=== PATIENT | female | born 1960 | race Caucasian/White ===

== ENCOUNTER 2018-04-10 11:08 | Emergency (ER) | payer OTHER ==
[~2018-04-10] VITALS: Ht 167.6 cm; Wt 57.2 kg
--- NOTE | 2018-04-10 11:10 | NUR ---
JF FROM HOME DT DIZZINESS, NAUSEA AND VOMITTIN SINCE YESTERDAY. PATIENT NOT IN DISTRESS. SKIN IS WARM TO TOUCH AND NON DIAPHORETIC. PATIENT IS AFEBRILE. VSS. PATIENT CONNECTED TO TELE MONITOR. MD AT BEDSIDE FOR EVAL.
[2018-04-10] MEDS ORDERED: METOCLOPRAMIDE HCL 10 MG/2 ML VIAL ONE (11:26)
[2018-04-10] MEDS: IV NS 0.9% 1,000 ML BAG IV ONE (11:28)
[2018-04-10] MEDS: METOCLOPRAMIDE HCL 10 MG/2 ML VIAL IV ONE (11:29)
[2018-04-10 11:37] LABS: CALCIUM, SERUM 8.5 mg/dL (8.5-10.1); CREATININE 0.8 mg/dL (0.6-1.3); POTASSIUM 4.6 mmol/L (3.5-5.1)
[2018-04-10 11:42] LABS: ALBUMIN 4.1 g/dL (3.4-5.0); BILIRUBIN,DIRECT 0.1 mg/dL (0.0-0.2); BILIRUBIN,TOTAL 0.3 mg/dL (0.2-1.0); TOTAL PROTEIN, SERUM 7.1 g/dL (6.4-8.2)
[2018-04-10 11:44] LABS: BASOPHILS % (AUTO) 0.3 % (0.0-2.0); EOSINOPHILS % (AUTO) 0.2 % (0.0-6.0); HEMATOCRIT 36 % (33-45); HEMOGLOBIN 12.4 g/dL (11.5-14.8); LYMPHOCYTES % (AUTO) 9.6 % (20.0-44.0); MEAN CORPUSCULAR HGB CONC 35 g/dl (31.0-36.0); MEAN CORPUSCULAR VOLUME 90 fL (82-100); MONOCYTES # (AUTO) 0.6 /CMM (0.1-1.30); MONOCYTES % (AUTO) 5.7 % (2.0-12.0); NEUTROPHILS # (AUTO) 8.6 /CMM (1.8-8.9); NEUTROPHILS % (AUTO) 84.2 % (43.0-81.0); PLATELET COUNT (AUTO) 284 /CMM (150-450); RDW COEFFICIENT OF VARIATION 13.6 (11.5-15.0); RED BLOOD CELL COUNT(AUTO) 3.96 MIL/uL (4.0-5.2); WHITE BLOOD COUNT (AUTO) 10.3 K/uL (4.3-11.0)
[2018-04-10] MEDS ORDERED: HYDROMORPHONE 1 MG/1 ML DISP.SYRIN ONE (11:57)
[2018-04-10] MEDS: HYDROMORPHONE 1 MG/1 ML DISP.SYRIN IV ONE (11:58)
[2018-04-10 13:27] VITALS: BP 132/70
--- NOTE | 2018-04-10 13:27 | NUR ---
Patient discharged to home in stable condition. Written and verbal after care instructions given. Patient verbalizes understanding of instruction.IV removed. Catheter intact and site benign. Pressure and 4x4 applied to site. No bleeding noted.
== END 2018-04-10 13:28 | disposition home or self-care (01) ==
LOC: ER 11:10
DX: R11.2 Nausea with vomiting, unspecified (principal); R19.7 Diarrhea, unspecified; R51 Headache; I10 Essential (primary) hypertension; F17.200 Nicotine dependence, unspecified, uncomplicated; F41.9 Anxiety disorder, unspecified; Z88.0 Allergy status to penicillin
CPT/HCPCS: 36415; 80048; 80076; 83690; 85025; 96361; 96374; 96375; 99284; A4606; J1170; J2765; J7030; Z7610

== ENCOUNTER 2018-11-03 17:04 | Inpatient (IN) | payer MEDICAID, OTHER ==
[~2018-11-03] VITALS: Ht 167.6 cm; Wt 65.8 kg
--- NOTE | 2018-11-03 17:18 | NUR ---
BIBRA FOR ABD PAIN; PT AAOX4, PT ON MONITOR, VSS, NAD NOTED, PENDING MD GRAMAJO
[2018-11-03] MEDS ORDERED: FAMOTIDINE/PF INJ 20 MG/2 ML VIAL IV ONE ×2 (17:24→17:30)
[2018-11-03] MEDS ORDERED: SUCRALFATE 1 G/10 ML UDC ONE (17:24)
[2018-11-03 17:26] LABS: BASOPHILS # (AUTO) 0.1 /CMM (0.0-0.2); BASOPHILS % (AUTO) 0.5 % (0.0-2.0); EOSINOPHILS % (AUTO) 0.1 % (0.0-6.0); HEMATOCRIT 40 % (33-45); HEMOGLOBIN 12.9 g/dL (11.5-14.8); LYMPHOCYTES # (AUTO) 2.1 /CMM (0.8-4.8); LYMPHOCYTES % (AUTO) 15.9 % (20.0-44.0); MEAN CORPUSCULAR HGB CONC 33 g/dl (31.0-36.0); MEAN CORPUSCULAR VOLUME 85 fL (82-100); MONOCYTES # (AUTO) 0.8 /CMM (0.1-1.30); MONOCYTES % (AUTO) 5.9 % (2.0-12.0); NEUTROPHILS # (AUTO) 10.5 /CMM (1.8-8.9); NEUTROPHILS % (AUTO) 77.6 % (43.0-81.0); PLATELET COUNT (AUTO) 360 /CMM (150-450); RED BLOOD CELL COUNT(AUTO) 4.67 MIL/uL (4.0-5.2); WHITE BLOOD COUNT (AUTO) 13.5 K/uL (4.3-11.0)
[2018-11-03] MEDS ORDERED: MORPHINE SULFATE INJ 4 MG/ML DISP.SYRIN ONE ×2 (17:29→20:27)
[2018-11-03] MEDS ORDERED: IV NS 0.9% 1,000 ML BAG IV ONE ×2 (17:30→20:30)
[2018-11-03] MEDS ORDERED: SUCRALFATE 1 G/10 ML UDC PO ONE (17:30)
[2018-11-03 17:40] LABS: CALCIUM, SERUM 9.3 mg/dL (8.5-10.1); CARBON DIOXIDE 27 mmol/L (21-32); CHLORIDE 98 mmol/L (98-107); GLUCOSE 158 mg/dL (74-106); SODIUM SERUM 135 mmol/L (136-145); UREA NITROGEN, BLOOD 9 mg/dL (7-18)
[2018-11-03 17:44] LABS: ALANINE AMINOTRANSFERASE 29 U/L (12-78); ALBUMIN 4.3 g/dL (3.4-5.0); ALKALINE PHOSPHATASE 102 U/L (46-116); ASPARTATE AMINOTRANSFERASE 30 U/L (15-37); BILIRUBIN,DIRECT 0.1 mg/dL (0.0-0.2); BILIRUBIN,TOTAL 0.3 mg/dL (0.2-1.0); LIPASE 166 U/L (73-393); TOTAL PROTEIN, SERUM 7.8 g/dL (6.4-8.2)
[2018-11-03] MEDS ORDERED: MORPHINE SULFATE INJ 4 MG/ML DISP.SYRIN IV STA (17:45)
--- NOTE | 2018-11-03 17:45 | NUR ---
VERBAL ORDER FROM DR. HUMMEL. MORPHINE 4MG IVP
[2018-11-03 18:15] LABS: APPEARANCE,URINE Slightly Cloudy (CLEAR); BILIRUBIN,URINE SMALL (NEGATIVE); BLOOD, URINE Trace-intact Ery/uL (NEGATIVE); COLOR,URINE Dark (YELLOW); KETONES,URINE Negative (NEGATIVE); LEUKOCYTE ESTERASE ,URINE Negative (NEGATIVE); NITRITE, URINE Negative (NEGATIVE); PH,URINE 5.5 (5.0-8.0); PROTEIN,URINE 30 mg/dl (NEGATIVE); UGLUCOSE Negative (NEGATIVE); UROBILINOGEN,URINE 0.2 EU/dL (0.2)
[2018-11-03] MEDS ORDERED: CT SWABBABLE VALVE TRANS SET 1 EA INFUS.SET MC ONE (18:16)
[2018-11-03] MEDS ORDERED: IV NS 0.9% 250 ML IV ONE (18:16)
[2018-11-03] MEDS ORDERED: IOHEXOL-300 100 ML VIAL IV ONE (18:16)
[2018-11-03 18:28] LABS: BACTERIA,URINE Moderate /HPF (None Seen); SQUAMOUS EPITHELIAL CELL,UR Many /HPF (None Seen)
[2018-11-03 18:29] LABS: RBC,URINE 0-2 /HPF (0-2)
[2018-11-03] MEDS ORDERED: GABA-534 PO (18:38)
[2018-11-03] MEDS ORDERED: ALPR2TAB2 PO (18:38)
[2018-11-03] MEDS ORDERED: ERGO500014 PO (18:38)
[2018-11-03] MEDS ORDERED: ATOR20TA PO (18:38)
[2018-11-03] MEDS ORDERED: HYDR-4354 PO (18:38)
[2018-11-03] MEDS ORDERED: PRIM250T8 GT (18:38)
[2018-11-03] MEDS ORDERED: LAMO200T PO (18:38)
[2018-11-03] MEDS ORDERED: ZOLP10TA6 PO (18:38)
[2018-11-03] MEDS ORDERED: ASPI-605 PO (18:38)
[2018-11-03] MEDS ORDERED: POTA-10 PO (18:38)
--- NOTE | 2018-11-03 20:22 | NUR ---
CALLED NURSING SUP. FOR MS BED
[2018-11-03] MEDS ORDERED: ONDANSETRON HCL/PF 4 MG/2 ML VIAL ONE (20:27)
--- NOTE | 2018-11-03 20:29 | NUR ---
MS 206-2
[2018-11-03] MEDS ORDERED: MORPHINE SULFATE INJ 2 MG/ML DISP.SYRIN IV ONE (20:30)
[2018-11-03] MEDS ORDERED: ONDANSETRON HCL/PF - ER 4 MG/2 ML VIAL IV ONE (20:30)
--- NOTE | 2018-11-03 20:51 | NUR ---
REPORT GIVEN TO IVETTE DELATORRE.
[2018-11-03] MEDS ORDERED: ZOLPIDEM TARTRATE 5 MG TABLET PO PRN (21:00)
[2018-11-03] MEDS ORDERED: Z GUARD REMEDY 2 OZ OINT TP PRN (21:00)
[2018-11-03] MEDS ORDERED: HYDROCODONE/APAP 5/325MG 1 EACH TABLET PO PRN (21:00)
[2018-11-03] MEDS ORDERED: MAG HYDROX/AL HYDROX/SIMETH 30 ML UDC PO PRN (21:00)
[2018-11-03] MEDS ORDERED: ACETAMINOPHEN 325 MG TABLET PO PRN (21:00)
[2018-11-03] MEDS ORDERED: MAGNESIUM HYDROXIDE 30 ML UDC PO PRN (21:00)
--- NOTE | 2018-11-03 21:00 | NUR ---
MS RN OPENING NOTES: RECEIVED PT ON ROOM AIR AND IS TOLERATING WELL. NO SOB NOTED. PT STILL COMPLAINING OF PAIN EVEN WITH MORPHINE 4MG IV GIVEN TO HER IN ER. PT HAS IV ON R WRIST AND IS BEING BOLUSED WITH A LITER OF NS BAG. INFORMED PT THAT SHE IS TO BE NPO. BED KEPT IN LOW, LOCKED POSITION, AND SIDE RAILS X 2UP. WILL CONTINUE TO MONITOR PT.
--- NOTE | 2018-11-03 21:35 | NUR ---
MS RN NOTES: NOTIFIED DR. STANLEY THAT PT IS STILL IN 8/10 PAIN EVEN WITH MORPHINE 4 GIVEN IN ER. GOT ORDER FOR DILAUDID 1MG IV Q4 HR PRN PAIN. ALSO GOT ORDER FOR SMALL BOWEL FOLLOW THROUGH WITH PO CONTRAST 50/50 BARIUM AND GASTROGRAFFIN.
[2018-11-03 21:40] VITALS: BP 131/77
--- NOTE | 2018-11-03 22:15 | NUR ---
MS RN NOTES: SMALL BOWEL FOLLOW THROUGH X RAY WITH CONTRAST CONSENT PLACED IN CHART.
[2018-11-03] MEDS: HYDROMORPHONE 1 MG/1 ML DISP.SYRIN IV PRN (22:45)
--- NOTE | 2018-11-03 22:50 | NUR ---
MS RN NOTES: PT COMPLAINING OF 10/10 PAIN IN HER MEDIAL ABDOMEN. PT CRYING, MOANING, AND FACIAL GRIMACING. PT WAS ADMINISTERED DILAUDID 1MG IV. NEW IV STARTED ON L AC #22G. R WRIST #20G REMOVED D/T BEING INFILTRATED.
[2018-11-04 02:21] VITALS: BP 122/60
[2018-11-04] MEDS: HYDROMORPHONE 1 MG/1 ML DISP.SYRIN IV PRN ×5 (02:45→13:05)
--- NOTE | 2018-11-04 02:51 | NUR ---
MS RN NOTES: PT COMPLAINING OF 10/10 MEDIAL ABDOMINAL PAIN. PT CRYING AND MOANING WHILE GRASPING ONTO ABDOMEN. PT WAS ADMINISTERED DILAUDID 1MG IV. WILL CONTINUE TO MONITOR.
[2018-11-04] MEDS: ONDANSETRON HCL/PF 4 MG/2 ML VIAL IVP PRN ×2 (05:31→11:27)
--- NOTE | 2018-11-04 05:35 | NUR ---
ZOFRAN 4MG GIVEN ORDERED FOR C/O NAUSEA. WILL CONT TO MONITOR.
[2018-11-04 06:26] LABS: BASOPHILS % (AUTO) 0.4 % (0.0-2.0); EOSINOPHILS % (AUTO) 0.5 % (0.0-6.0); HEMATOCRIT 33 % (33-45); HEMOGLOBIN 11.2 g/dL (11.5-14.8); LYMPHOCYTES # (AUTO) 1.3 /CMM (0.8-4.8); LYMPHOCYTES % (AUTO) 22.3 % (20.0-44.0); MEAN CORPUSCULAR HGB CONC 34 g/dl (31.0-36.0); MEAN CORPUSCULAR VOLUME 85 fL (82-100); MONOCYTES # (AUTO) 0.6 /CMM (0.1-1.30); MONOCYTES % (AUTO) 10.6 % (2.0-12.0); NEUTROPHILS # (AUTO) 3.9 /CMM (1.8-8.9); NEUTROPHILS % (AUTO) 66.2 % (43.0-81.0); PLATELET COUNT (AUTO) 276 /CMM (150-450); RED BLOOD CELL COUNT(AUTO) 3.92 MIL/uL (4.0-5.2); WHITE BLOOD COUNT (AUTO) 5.8 K/uL (4.3-11.0)
[2018-11-04 06:38] VITALS: BP 119/64
[2018-11-04 06:45] LABS: CALCIUM, SERUM 8.6 mg/dL (8.5-10.1); CREATININE 0.8 mg/dL (0.6-1.3); MAGNESIUM 2.4 mg/dL (1.8-2.4); PHOSPHORUS 3.3 mg/dL (2.5-4.9); POTASSIUM 4.7 mmol/L (3.5-5.1)
--- NOTE | 2018-11-04 06:48 | NUR ---
MS RN NOTES: PT STILL COMPLAINING OF AB PAIN 03/17. PT WAS ADMINISTERED DILAUDID 1MG IV. ALSO, PT VERBALIZED THAT SHE TAKES HER DRISDOL ON SATURDAY. WILL ENDORSE TO AM NURSE FOR ELBERT.
--- NOTE | 2018-11-04 07:29 | NUR ---
MS RN CLOSING NOTES: ALL NEEDS WERE ATTENDED AND ANTICIPATED FOR. IV REMAINS INTACT. PT KEPT NPO. PT FOR SMALL BOWEL FOLLOW THROUGH TODAY. NO SOB NOTED. BED KEPT IN LOW, LOCKED POSITION, AND SIDE RAILS X 2UP. ENDORSED TO AM NURSE FOR ELBERT.
[2018-11-04] MEDS: PANTOPRAZOLE 40 MG TABLET.DR PO SCH (07:30)
--- NOTE | 2018-11-04 07:47 | NUR ---
RN NOTES PATIENT A/OX4, ICE PACK PLACED ON ABDOMEN AREA TO HELP WITH PAIN. KEPT PATIENT NPO FOR SMALL BOWEL FOLLOW THROUGH. NO IV FLUIDS ORDERED AT THIS TIME, WILL FOLLOW UP WITH MD. KEPT PATIENT COMFORTABLE, CALL LIGHT WITHIN REACH, WILL CONTINUE TO MONITOR.
[2018-11-04 08:00] VITALS: BP 103/67
--- NOTE | 2018-11-04 08:58 | NUR ---
RN NOTES INFORMED DR. BELLO PATIENT'S DILAUDID IS INEFFECTIVE. RECEIVED VERBAL ORDER TO CHANGE THE DOSE TO 0.5MG Q2HR IV PRN. ORDER NOTED AND CARRIED OUT.
[2018-11-04] MEDS: LamoTRIgine 100 MG TABLET PO SCH (09:00)
[2018-11-04] MEDS: GABAPENTIN 300 MG CAPSULE PO SCH ×3 (09:00→16:10)
[2018-11-04] MEDS: PRIMIDONE 250 MG TABLET GT SCH ×2 (09:00→16:10)
[2018-11-04] MEDS: ASPIRIN EC 81 MG TABLET.DR PO SCH (09:00)
[2018-11-04] MEDS ORDERED: IV D5/0.45 NACL 500 ML IV SCH (09:00)
[2018-11-04] MEDS: IV D5/0.45 NACL 1,000 ML IV PRN ×2 (09:07→23:45)
--- NOTE | 2018-11-04 09:20 | NUR ---
RN NOTES PATIENT WENT DOWN FOR SMALL BOWEL FOLLOW THROUGH.
[2018-11-04] MEDS ORDERED: DIATR MEGLU/DIATRIZOATE SODIUM 120 ML BOTTLE (GASTROGRAPHIN) ONE ×2 (09:22→09:36)
[2018-11-04] MEDS ORDERED: BARIUM SULFATE 98% 135 ML SUSP.RECON PO ONE (09:23)
--- NOTE | 2018-11-04 13:08 | NUR ---
RN NOTES INFORMED DR. BELLO PATIENT'S DILAUDID WEARS OFF LESS THAN 2 HOURS AND PATIENT IS COMPLAINING OF ABDOMINAL PAIN 04/16. RECEIVED ORDER FROM DR. BELLO TO GIVE NORCO 10/325MG PO EVERY 6 HOURS PRN. PER MD, PARESH TO GIVE NORCO BY MOUTH. PATIENT MADE AWARE.
[2018-11-04] MEDS ORDERED: HYDROCODONE/APAP 10/325MG 1 EA TABLET PO PRN (13:30)
--- NOTE | 2018-11-04 14:21 | NUR ---
RN NOTES FOLLOWED UP WITH DR. SULLIVAN RE: SURGICAL CONSULT DUE TO SBO.
[2018-11-04] MEDS: HYDROMORPHONE INJ 0.5 MG/0.5 ML SYRINGE IV PRN ×3 (15:17→22:15)
[2018-11-04 16:00] VITALS: BP 113/73
--- NOTE | 2018-11-04 17:25 | NUR ---
RN NOTES INFORMED DR. BELLO PATIENT'S PAIN MANAGEMENT IS INEFFECTIVE, PATIENT IS CRYING, MOANING AND THRASHING. ABD PAIN "10". PATIENT IS CURRENTLY ON DILAUDID 1MG IV Q3HRS PRN AND NORCO 10/325MG WHICH WAS ALSO GIVEN AND STILL NOT DUE YET AT THIS TIME. WAITING FOR DR. BELLO'S ORDER, INFORMED THE PATIENT.
--- NOTE | 2018-11-04 17:32 | NUR ---
RN NOTES PATIENT HAS HAD 3 XRAYS DONE FOR SMALL BOWEL FOLLOW THROUGH, 2 MORE XRAYS SCHEDULED PER SHOP MECHANIC HELPER, 1914 & 2114.
--- NOTE | 2018-11-04 17:55 | NUR ---
RN NOTES PATIENT SEEN BY DR. SULLIVAN, RECEIVED VERBAL ORDER FOR DILAUDID 1MG X1 NOW, AND TO INSERT NGT. NG TUBING MEASURED FOR PLACEMENT. NGT FR18 INSERTED BY ODILON INTEGRATION ASSISTANT (DR. SULLIVAN'S INTEGRATION ASSISTANT) ON RIGHT NOSTRILS WITH 60MM MARKED ON THE TUBING PLACEMENT VERIFIED, THEN PATIENT CONNECTED ON LOW INTERMITTENT SUCTION, PATIENT HAD A TOTAL OF 750ML OF GASTRIC OUTPUT, IMMEDIATELY. PATIENT TOLERATED PROCEDURE WELL, DILAUDID 1MG X1 GIVEN TO THE PATIENT. VITALS BP113/67 R22 HR 99 SPO2 95% IN ROOM AIR. RECEIVED ORDER FROM DR. SULLIVAN, TO ORDER STAT CXR AND KUB, AND TO RELAY RESULT TO DR. SULLIVAN
--- NOTE | 2018-11-04 17:59 | NUR ---
RN NOTES RECEIVED ORDER FROM DR. BELLO TO ADMINISTER ATIVAN 0.5MG X1 ONLY. SMALL BOWEL FOLLOW THROUGH RESULT STILL PENDING.
[2018-11-04] MEDS ORDERED: HYDROMORPHONE 1 MG/1 ML DISP.SYRIN IV PRN (18:00)
--- NOTE | 2018-11-04 18:30 | NUR ---
RN NOTES GASTRIC OUTPUT SHOWS 750ML AT THIS TIME.
--- NOTE | 2018-11-04 19:25 | NUR ---
MS RN OPENING NOTES: RECEIVED PT ON ROOM AIR. PT TO BE ON CONT PULSE OX AND AWAITING FOR CONT PULSE OX MACHINE TO BE DELIVERED BY RT. PT SITTING UPRIGHT IN BED WITH NG TUBE ON RIGHT NARE. NGT ON LOW INTERMITTENT SUCTION. IT IS PATENT AND DRAINING. NO SOB NOTED. DR. EMERITA SULLIVAN AT NURSING STATION AND RECOMMENDED THAT SHE SHOULD GET GI CONSULT. PT IN MILD DISTRESS SHE IS STILL HAVING ABDOMINAL PAIN. FAMILY MEMBER AT BEDSIDE. IV INFUSING WITH D51/2 NS AT 100ML/HR. PT TO BE NPO AND PT UNDERSTOOD. PT AWAKE AND A/OX4. BED KEPT IN LOW, LOCKED POSITION, AND SIDE RAILS X 2UP. WILL CONTINUE TO MONITOR PT. Addendum: 11/05/18 at 0416 by REINALDO REBOLLEDO RN IN RIGHT NARE
[2018-11-04] MEDS ORDERED: LORAZEPAM INJ 2 MG/ML VIAL IV PRN (19:30)
--- NOTE | 2018-11-04 19:30 | NUR ---
RN NOTES INFORMED DR. SULLIVAN RE: CXR AND KUB RESULT. NO NEW ORDER AT THIS TIME. PATIENT NGT PATENT AND DRAINING, CURRENTLY ON LOW INTERMITTENT SUCTION, AT BEDSIDE. KEPT PATIENT COMFORTABLE, NEEDS ATTENDED AND MET, CALL LIGHT WITHIN REACH, PATIENT VERBALIZED SHE FEELS BETTER, ENDORSED TO HOT BOX SPOTTER FOR ELBERT.
--- NOTE | 2018-11-04 19:40 | NUR ---
MS RN NOTES: PT PLACED ON CONT PULSE OX. PT ALSO PLACED ON 2LPM VIA NC TO KEEP SPO2 > 92 % ORDERED.
[2018-11-04 20:00] VITALS: BP 124/68
--- NOTE | 2018-11-04 20:20 | NUR ---
MS RN NOTES: PT VERY ANXIOUS. PT WAS ADMINISTERED ONE TIME DOSE OF ATIVAN 0.5MG IV. WILL CONTINUE TO MONITOR.
[2018-11-04] MEDS: ATORVASTATIN 10 MG TABLET PO SCH (21:11)
--- NOTE | 2018-11-04 21:26 | NUR ---
MS RN NOTES: MACHINE LOADER AT BEDSIDE.
[2018-11-04 22:13] VITALS: BP 122/73
--- NOTE | 2018-11-04 22:19 | NUR ---
MS RN NOTES: PT COMPLAINING OF 10/10 ABDOMINAL PAIN. PT WAS ADMINISTERED DILAUDID 1MG IV. WILL CONTINUE TO MONITOR PT.
[2018-11-05] VITALS (7 sets, daily range): BP systolic 107–138; BP diastolic 64–76
[2018-11-05] MEDS: ONDANSETRON HCL/PF 4 MG/2 ML VIAL IVP PRN (01:11)
[2018-11-05] MEDS: HYDROMORPHONE INJ 0.5 MG/0.5 ML SYRINGE IV PRN ×2 (01:15→04:32)
--- NOTE | 2018-11-05 01:18 | NUR ---
MS RN NOTES: PT FEELING NAUSEOUS. PT WAS ADMINISTERED ZOFRAN 4MG IV. PT ALSO IN EXTREME PAIN 10/10 IN ABDOMEN AND IS CRYING. PT WAS ADMINISTERED DILAUDID 1MG IV. WILL CONTINUE TO MONITOR.
[2018-11-05] MEDS: LORAZEPAM INJ 2 MG/ML VIAL IV PRN ×3 (01:46→21:43)
--- NOTE | 2018-11-05 01:51 | NUR ---
MS RN NOTES: PT VERY ANXIOUS THAT HER PAIN LEVEL WON'T DECREASE. PT WAS ADMINISTERED ATIVAN 1MG IV. WILL CONTINUE TO MONITOR PT.
--- NOTE | 2018-11-05 04:41 | NUR ---
MS RN NOTES: PT HAD A BOWEL MOVEMENT THAT CONSISTED OF HARD BALLS AND SEMI-FORMED BROWN STOOL. PT ALSO COMPLAINING OF 10/10 MEDIAL ABDOMINAL PAIN. PT WAS ADMINISTERED DILAUDID 1MG IV. WILL CONTINUE TO MONITOR.
--- NOTE | 2018-11-05 06:03 | NUR ---
MS RN NOTES: PAGED ULTRASONIC CLEANER CHANELLE VILLA. INFORMED HIM THAT PT HAS AN NG TUBE IN PLACE AND THAT SHE DOES NOT KNOW ANY LONGER HOW LONG SHE CAN TOLERATE IT FOR ALTHOUGH EXPLAINED TO PT THE IMPORTANCE OF THE NG TUBE. ALSO, INFORMED HIM THAT PT STILL IN 10/10 EXCRUCIATING PAIN IN HER ABDOMEN AND ALTHOUGH PT RECEIVED THE DILAUDID 1MG AROUND 432AM, PT IS STILL IN PAIN. NO NEW ORDERS AT THIS TIME.
--- NOTE | 2018-11-05 06:20 | NUR ---
MS RN NOTES: INFORMED SIGNWRITER CHANELLE VILLA THAT PT IS REALLY REQUESTING TO SPEAK TO A DOCTOR AND SEE HER AT BEDSIDE. PER CHANELLE VILLA, HE IS JUST THE CONTENT COORDINATOR AND IT HAS TO BE THE PRIMARY/ATTENDING TO SEE HER. NO NEW ORDERS FOR PAIN MEDICATION. PT VERBALIZED THAT ONLY DR. SULLIVAN THE SURGEON SAW HER YESTERDAY. SHE WAS NOT SEEN BY ANY DOCTOR AND WOULD LIKE TO SEE AND SPEAK TO ONE HER PAIN IS NOT MANAGED.
--- NOTE | 2018-11-05 07:26 | NUR ---
MS DELATORRE CLOSING NOTES: ALL NEEDS WERE ATTENDED AND ANTICIPATED FOR. PT SITTING UP IN BED AT THIS TIME. NGTUBE IN R NARE AND ON LOW INTERMITTENT SUCTION. GASTRIC OUTPUT WAS 50ML. PT VERY UPSET THAT A PHYSICIAN NEVER SAW HER. PT HAS IV AND IS BEING INFUSED WITH IV D51/2 NS AT 100ML/HR. PT ON 2LPM VIA NC AND IS ON CONT PULSE OX. BED KEPT IN LOW, LOCKED POSITION, AND SIDE RAILS X 2UP. PT IN HIGH ESCOTO'S POSITION. ENDORSED TO AM NURSE FOR ELBERT. Addendum: 11/05/18 at 0730 by REINALDO REBOLLEDO RN PT ALSO HAD A LOOSE BM THIS AM.
[2018-11-05 07:27] LABS: BASOPHILS % (AUTO) 0.4 % (0.0-2.0); HEMATOCRIT 30 % (33-45); HEMOGLOBIN 9.9 g/dL (11.5-14.8); LYMPHOCYTES # (AUTO) 1.2 /CMM (0.8-4.8); LYMPHOCYTES % (AUTO) 30.5 % (20.0-44.0); MEAN CORPUSCULAR HGB CONC 33 g/dl (31.0-36.0); MEAN CORPUSCULAR VOLUME 86 fL (82-100); MONOCYTES # (AUTO) 0.6 /CMM (0.1-1.30); MONOCYTES % (AUTO) 15.9 % (2.0-12.0); NEUTROPHILS # (AUTO) 2.1 /CMM (1.8-8.9); NEUTROPHILS % (AUTO) 52.2 % (43.0-81.0); PLATELET COUNT (AUTO) 231 /CMM (150-450); RED BLOOD CELL COUNT(AUTO) 3.49 MIL/uL (4.0-5.2)
[2018-11-05] MEDS: PANTOPRAZOLE 40 MG TABLET.DR PO SCH (07:30)
[2018-11-05] MEDS ORDERED: HYDROMORPHONE 1 MG/1 ML DISP.SYRIN IV PRN (07:38)
--- NOTE | 2018-11-05 08:08 | NUR ---
RN NOTES PATIENT A/OX4, PATIENT GIVEN DILAUDID 1MG FOR PAIN, 04/16. NGT PATENT AND CONNECTED TO LOW INTERMITTENT SUCTION WITH GREEN GASTRIC CONTENT 100ML AT THIS TIME. PATIENT'S SPO2 DROPS DOWN TO 80S DUE TO PAIN. PATIENT IS ON O2 AT 2LPM VIA NC. INFORMED DR. SULLIVAN AND ORDERED TO TRANSFER PATIENT TO TELEMETRY FOR CLOSE MONITORING. HR 113 AT THIS TIME. FOLLOWED UP SMALL BOWEL FOLLOW THROUGH RESULT AND HAZARDOUS MATERIALS HANDLER STATED IT WILL BE READ IN 15 MINS. NEEDS ATTENDED, PATIENT HAD A TOTAL OF 4 BM'S SINCE LAST NIGHT. PATIENT IS ON IVF AND TOLERATING WELL. INFORMED NURSING DELIVERY CONSULTANT AND TELE CHARGE NURSE FOR A TELE BED.
[2018-11-05 08:12] LABS: CALCIUM, SERUM 8.3 mg/dL (8.5-10.1); CREATININE 0.6 mg/dL (0.6-1.3); MAGNESIUM 2.2 mg/dL (1.8-2.4); PHOSPHORUS 3.1 mg/dL (2.5-4.9); POTASSIUM 4.1 mmol/L (3.5-5.1)
--- NOTE | 2018-11-05 08:13 | NUR ---
RN NOTES PATIENT IS ASSIGNED ROOM 322-1.
[2018-11-05] MEDS: LamoTRIgine 100 MG TABLET PO SCH (09:00)
[2018-11-05] MEDS: GABAPENTIN 300 MG CAPSULE PO SCH ×3 (09:00→17:00)
[2018-11-05] MEDS: PRIMIDONE 250 MG TABLET GT SCH ×2 (09:00→17:00)
[2018-11-05] MEDS: ASPIRIN EC 81 MG TABLET.DR PO SCH (09:00)
--- NOTE | 2018-11-05 09:02 | NUR ---
RN NOTES REPORT GIVEN TO JUANITA DELATORRE. PATIENT TRANSFERRED TO [facility] VIA ACLS PROTOCOL. PATIENT NGT CLAMPED, ON O2 AT 2LPM VIA NC. PATIENT IN STABLE CONDITION, PATIENT IS STILL COMPLAINING OF PAIN 02/14. PATIENT PLACED ON TELE MONITOR. REPORT GIVEN TO COREY CHARGE NURSE.
--- NOTE | 2018-11-05 09:05 | NUR ---
OPERATIONS CONTROLLER NOTES RECEIVED PT FROM JUAN DELATORRE VIA BED, PT IS AWAKE, ALERT AND ORIENTED, RESPIRATIONS NORMAL, WITH COMPLAINT OF ABDOMINAL PAIN 7/10, NO NAUSEA OR VOMITING AT THIS TIME, WITH NGT CONNECTED TO LOW INTERMITTENT SUCTION, IV FLUIDS INFUSING WELL, CALL LIGHT PLACED WITHIN REACH, PLAN OF CARE DISCUSSED WITH PT, VERBALIZED UNDERSTANDING, KEPT WARM AND COMFORTBLE IN BED.
[2018-11-05] MEDS ORDERED: LORAZEPAM INJ 2 MG/ML VIAL IV ONE (10:30)
[2018-11-05] MEDS: HYDROMORPHONE 1 MG/1 ML DISP.SYRIN IV PRN ×5 (11:20→23:25)
--- NOTE | 2018-11-05 12:08 | NUR ---
PHONE MANAGER NOTES PT IN BED, AWAKE, ALERT AND ORIENTED, PAIN MEDICATION GIVEN FOR PAIN MANAGEMENT, RESPIRATIONS NORMAL, NGT ON LOW INT SUCTION WITH MINIMAL LIGHT GREENISH FLUID, PT SEEN BY DR. BELLO, PLAN OF CARE DISCUSSED WITH PT, VERBALIZED UNDERSTANDING, WILL CONTINUE TO MONITOR.
[2018-11-05] MEDS ORDERED: PHENOL/SODIUM PHENOLATE 1 BOTTLE MM PRN (13:30)
--- NOTE | 2018-11-05 13:42 | NUR ---
NANDINI olson notes Nuria DIGITAL MEDIA MANAGER, spoke and discussed with the PT about the Plan of care, disease process, pain managements, and KUB x-ray. Nuria ROGER, suggested the pt to walk as tolerated and chloraseptic spray for sore throat. PT verbalize understanding. Bed at low position and call light is within reach. Will continue to monitor.
[2018-11-05] MEDS: IV D5/0.45 NACL 1,000 ML IV PRN (14:19)
--- NOTE | 2018-11-05 18:32 | NUR ---
RN medsur closing notes Pt is alert and oriented X4. Saundra SET OFF BLOCKER, GI specialist spoke with PT regarding plan of care. Pt verbalize understanding. PT is not on oxygen anymore. NO SOB. respiration is clear and unlabored. Labs ordered. Stool specimen sent to lab, received by Yane. PT still in NG tube. NPO. pain medications have been given for pain management. help repositioning for comfort. No c/o of nausea and vomiting at this time. Pt's at the bedside. Bed at low position and call light is within reach. IV fluid is running D5 1/2NS @ 100 ML/HR.
--- NOTE | 2018-11-05 19:35 | NUR ---
RN OPENING NOTES RECEIVED PATIENT AWAKE, RESTING COMFORTABLY IN BED. PATIENT IS A/O X 4. NO SIGNS OF RESPIRATORY DISTRESS. DENIES SHORTNESS OF BREATH. PATIENT DENIES PAIN AT THIS TIME. PATIENT HAS NG TUBE ON LOW, INTERMITTENT SUCTION. IV SITE PATENT AND INTACT. NO COMPLAINTS OF NAUSEA OR VOMITING AT THIS TIME. CURRENT TELE READING IS SR 96. SAFETY PRECAUTIONS IMPLEMENTED. CALL LIGHT WITHIN REACH. WILL CONTINUE TO MONITOR PATIENT THROUGHOUT THE SHIFT.
[2018-11-05] MEDS: ATORVASTATIN 10 MG TABLET PO SCH (21:21)
[2018-11-05 21:36] LABS: OCCULT BLOOD STOOL NEGATIVE (NEGATIVE)
--- NOTE | 2018-11-05 23:26 | NUR ---
RN NOTES PATIENT PULLED OUT NG TUBE. I OFFERED TO REINSERT A NEW NGTUBE. PATIENT STILL REFUSES. STOPPER GRINDER, CHANELLE VILLA IS AWARE. NO RECOMMENDATIONS AT THIS TIME.
[2018-11-06] VITALS: BP 118/71
[2018-11-06 04:00] VITALS: BP 130/70
[2018-11-06] MEDS: HYDROMORPHONE 1 MG/1 ML DISP.SYRIN IV PRN ×4 (04:04→19:40)
--- NOTE | 2018-11-06 05:13 | NUR ---
RN NOTES PATIENT PULLED OUT IV ON RIGHT ANTECUBITAL. REINSERTION DONE ON RIGHT HAND.
--- NOTE | 2018-11-06 06:32 | NUR ---
RN CLOSING NOTES PATIENT IS AWAKE, RESTING COMFORTABLY IN BED. PATIENT HAS NO SIGNS OF RESPIRATORY DISTRESS. NO SIGNS OF SHORTNESS OF BREATH. NEW IV SITE PATENT AND INTACT. ALL NEEDS WERE MET. ALL MEDICATIONS GIVEN. LATEST TELE READING IS 90. SAFETY PRECAUTIONS IMPLEMENTED. CALL LIGHT WITHIN REACH. WILL ENDORSE TO AM RN.
[2018-11-06 06:59] LABS: BASOPHILS % (AUTO) 0.3 % (0.0-2.0); EOSINOPHILS % (AUTO) 0.7 % (0.0-6.0); HEMATOCRIT 30 % (33-45); HEMOGLOBIN 9.8 g/dL (11.5-14.8); LYMPHOCYTES # (AUTO) 1.5 /CMM (0.8-4.8); LYMPHOCYTES % (AUTO) 21.8 % (20.0-44.0); MEAN CORPUSCULAR HGB CONC 33 g/dl (31.0-36.0); MEAN CORPUSCULAR VOLUME 85 fL (82-100); MONOCYTES # (AUTO) 0.6 /CMM (0.1-1.30); MONOCYTES % (AUTO) 9.4 % (2.0-12.0); NEUTROPHILS # (AUTO) 4.6 /CMM (1.8-8.9); NEUTROPHILS % (AUTO) 67.8 % (43.0-81.0); PLATELET COUNT (AUTO) 223 /CMM (150-450); RED BLOOD CELL COUNT(AUTO) 3.48 MIL/uL (4.0-5.2); WHITE BLOOD COUNT (AUTO) 6.8 K/uL (4.3-11.0)
--- NOTE | 2018-11-06 07:00 | NUR ---
Medsurg RN notes PT is alert and oriented X4. PT is resting in bed awake. NO complaints of pain or any discomfort. No SOB. IV site is intact and patent. Tele reading is 90.Respirations is equal, clear and unlabored. Bed at low position and call light is within reach. Will continue to monitor
[2018-11-06 07:14] LABS: CALCIUM, SERUM 8.6 mg/dL (8.5-10.1); CREATININE 0.5 mg/dL (0.6-1.3); MAGNESIUM 1.7 mg/dL (1.8-2.4); PHOSPHORUS 2.8 mg/dL (2.5-4.9); POTASSIUM 3.7 mmol/L (3.5-5.1)
[2018-11-06] MEDS: PANTOPRAZOLE 40 MG TABLET.DR PO SCH (07:30)
[2018-11-06 08:00] VITALS: BP 120/66
[2018-11-06] MEDS: LORAZEPAM INJ 2 MG/ML VIAL IV PRN ×2 (08:39→21:14)
[2018-11-06] MEDS: LamoTRIgine 100 MG TABLET PO SCH (09:00)
[2018-11-06] MEDS: ASPIRIN EC 81 MG TABLET.DR PO SCH (09:00)
[2018-11-06] MEDS: GABAPENTIN 300 MG CAPSULE PO SCH ×3 (09:00→17:24)
[2018-11-06] MEDS: PRIMIDONE 250 MG TABLET GT SCH ×2 (09:00→17:24)
--- NOTE | 2018-11-06 09:30 | NUR ---
MEDr RN notes PT is alert and oriented X4. PT states "I don't feel any pain but I need medication for my anxiety". Ativan has been given. PT anxiety is better now.
[2018-11-06] MEDS: Magnesium 1GM/D5W 100ML PREMIX 100 ML IV SCH ×2 (10:46→11:53)
[2018-11-06] MEDS: IV D5/0.45 NACL 1,000 ML IV PRN (10:47)
[2018-11-06 15:57] VITALS: BP 126/73
--- NOTE | 2018-11-06 18:30 | NUR ---
RN MS NOTES PT IN BED, AWAKE, ALERT AND ORIENTED, NO COMPLAINT OF PAIN AT THIS TIME, NO COMPLAINT OF NAUSEA, SEEN BY ODILON ROGER, ORDERED TO START ON CLEAR LIQUID DIET, PT TOLERATES WELL, AMBULATES WITH STEADY GAIT, PM MEDS GIVEN, ALL NEEDS ATTENDED.
--- NOTE | 2018-11-06 19:30 | NUR ---
RN MS OPENING NOTES RECEIVED BEDSIDE REPORT, PT IN BED, AWAKE ALERT ORIENTEDX4, BREATHING EVEN AND UNLABORED ON ROOM AIR. PT COMPLAINS OF ABD PAIN 01/14, DILAUDID ADMINISTERED PRESCRIBED. IV ACCESS ON THE R HAND 24GWITH D5 1/2 NS @100ML/HR. BED IN LOWEST LOCKED POSITION, CALL LIGHT WITHIN REACH AT ALL TIMES, WILL CONTINUE TO MONITOR FREQUENTLY
[2018-11-06 20:00] VITALS: BP 142/76
[2018-11-06] MEDS: ATORVASTATIN 10 MG TABLET PO SCH (21:14)
--- NOTE | 2018-11-07 06:22 | NUR ---
RN MS CLOSING NOTES PT REMAINS IN BED, SLEEPING, EASILY AROUSED TO NAME CALL, BREATHING EVEN AND UNLABORED ON ROOM AIR. IN NO APPARENT PAIN OR DISCOMFORT AT THIS TIME. IV ACCESS ON THE R HAND 24GWITH D5 1/2 NS @100ML/HR. BED IN LOWEST LOCKED POSITION, CALL LIGHT WITHIN REACH AT ALL TIMES, WILL ENDORSE TO DAY NURSE FOR ELBERT
[2018-11-07 07:06] LABS: CALCIUM, SERUM 8.5 mg/dL (8.5-10.1); CREATININE 0.4 mg/dL (0.6-1.3); MAGNESIUM 1.8 mg/dL (1.8-2.4); POTASSIUM 3.4 mmol/L (3.5-5.1)
--- NOTE | 2018-11-07 07:36 | NUR ---
MS/RN OPENING NOTE PATIENT IN BED IN STABLE CONDITION. A/O X 4. NO SIGNS OF ACUTE DISTRESS. NO COMPLAIN OF PAIN OR DISCOMFORT. ALL NEEDS ATTENDED TO. CALL LIGHT WITHIN REACH. WILL CONTINUE TO MONITOR TO ENSURE SAFETY.
[2018-11-07 08:00] VITALS: BP 144/73
[2018-11-07] MEDS: LamoTRIgine 100 MG TABLET PO SCH (08:20)
[2018-11-07] MEDS: GABAPENTIN 300 MG CAPSULE PO SCH ×2 (08:20→12:05)
[2018-11-07] MEDS: PRIMIDONE 250 MG TABLET GT SCH (08:20)
[2018-11-07] MEDS: ASPIRIN EC 81 MG TABLET.DR PO SCH (08:20)
[2018-11-07] MEDS: HYDROMORPHONE 1 MG/1 ML DISP.SYRIN IV PRN (08:20)
[2018-11-07] MEDS: PANTOPRAZOLE 40 MG TABLET.DR PO SCH (08:20)
[2018-11-07] MEDS ORDERED: ERGOCALCIFEROL (VITAMIN D 2) 50,000 UNIT CAPSULE PO SCH (09:00)
--- NOTE | 2018-11-07 09:41 | NUR ---
MS/RN PATIENT TOLERATED FULL LIQUID DIET WELL NO COMPLAIN OF PAIN OR DISCOMFORT OR ANY N/V. DIET ADVANCED TO SOFT DIET FOR LUNCH TOLERATED. WILL CONTINUE TO MONITOR FOR FURTHER CHANGES AND TO ENSURE SAFETY.
[2018-11-07 11:08] LABS: *ANCANTIMYELOPEROXIDASE (MPO) <9.0 U/mL (0.0-9.0)
[2018-11-07] MEDS ORDERED: POTASSIUM CHLORIDE 20 MEQ TAB.PRT.SR PO SCH (11:30)
[2018-11-07 12:09] LABS: *ANCANTIPROTEINASE 3 (PR-3) AB <3.5 U/mL (0.0-3.5)
--- NOTE | 2018-11-07 13:26 | NUR ---
MS/VISUAL AID EXPERT PATIENT DISCHARGE HOME IN STABLE CONDITION. A/O X 4. NO SIGNS OF ACUTE DISTRESS. NO COMPLAIN OF PAIN OR DISCOMFORT. DISCHARGE EDUCATION AND TEACHINGS PROVIDED, MADE AWARE TO FOLLOW UP WITH PRIMARY PHYSICIAN AND GI WITHIN A WEEK FOR OUTPATIENT EGD AND COLONOSCOPY TO RULE OUT [employer]. VERBALIZED UNDERSTANDING. NAME BAND AND IV LINE REMOVED. LEFT IN STABLE CONDITION VIA PRIVATE CAR ACCOMPANIED BY .
[2018-11-07 15:10] LABS: *ANCA ATYPICAL p-ANCA <1:20 titer (Neg:<1:20); *ANCA CYTOPLASMIC (C-ANCA) <1:20 titer (Neg:<1:20); *ANCA PERINUCLEAR (P-ANCA) <1:20 titer (Neg:<1:20)
== END 2018-11-07 13:26 | disposition home or self-care (01) | DRG 245 ==
LOC: ER 17:10 → MEDSG2 20:39 → TELE 11-05 08:49 → MED 11-06 10:44
PROVIDERS: ADMIT Nurse Practitioner Acute Care; ATTEND Internal Medicine
DX: K50.90 Crohn's disease, unspecified, without complications (principal); K56.609 Unspecified intestinal obstruction, unspecified as to partial versus complete obstruction; E87.1 Hypo-osmolality and hyponatremia; E86.0 Dehydration; D72.829 Elevated white blood cell count, unspecified; G40.909 Epilepsy, unspecified, not intractable, without status epilepticus; I10 Essential (primary) hypertension; F41.9 Anxiety disorder, unspecified; F32.9 Major depressive disorder, single episode, unspecified; Z88.0 Allergy status to penicillin; Z87.891 Personal history of nicotine dependence; G89.29 Other chronic pain; M25.519 Pain in unspecified shoulder; A09 Infectious gastroenteritis and colitis, unspecified; D64.9 Anemia, unspecified
CPT/HCPCS: 36415; 71045-TC; 74018; 74250-TC; 76700-TC; 80048-TC; 80061-TC; 80076-TC; 81000-TC; 82272-TC; 83520; 83690-TC; 83735-TC; 84100-TC; 84484-TC; 85025-TC; 85652-TC; 86140-TC; 86256; 87045-TC; 87081-TC; 87086-TC; 89055; 94760-TC; G0378; J1170; J2060; J2270; J2405; J3475; J3490; J7030; J7050; Q9963; Q9967

== ENCOUNTER 2021-07-08 17:17 | Emergency (ER) | payer OTHER ==
[~2021-07-08] VITALS: Ht 165.1 cm; Wt 85.7 kg
[~2021-07-08 17:17] MED LIST: ALPR2TAB2 PO; ASPI-605 PO; ATOR20TA PO; ERGO500014 PO; GABA-534 PO; HYDR-4354 PO; LAMO200T10 PO; POTA-10 PO; PRIM250T8 GT; ZOLP10TA6 PO
[2021-07-08 17:49] LABS: BASOPHILS % (AUTO) 0.2 % (0.0-2.0); EOSINOPHILS % (AUTO) 0.1 % (0.0-6.0); HEMATOCRIT 36 % (33-45); HEMOGLOBIN 12.1 g/dL (11.5-14.8); LYMPHOCYTES # (AUTO) 0.5 K/uL (0.8-4.8); LYMPHOCYTES % (AUTO) 3.5 % (20.0-44.0); MEAN CORPUSCULAR HGB CONC 34 g/dl (31.0-36.0); MEAN CORPUSCULAR VOLUME 91 fL (82-100); MONOCYTES # (AUTO) 0.7 K/uL (0.1-1.30); MONOCYTES % (AUTO) 5.3 % (2.0-12.0); NEUTROPHILS # (AUTO) 12.4 K/uL (1.8-8.9); NEUTROPHILS % (AUTO) 90.9 % (43.0-81.0); PLATELET COUNT (AUTO) 224 K/uL (150-450); RED BLOOD CELL COUNT(AUTO) 3.99 MIL/uL (4.0-5.2); WHITE BLOOD COUNT (AUTO) 13.6 K/uL (4.3-11.0)
[2021-07-08] MEDS ORDERED: MORPHINE SULFATE INJ 4 MG/ML DISP.SYRIN ONE (17:50)
[2021-07-08] MEDS ORDERED: IOHEXOL-350 100 ML VIAL IV ONE (17:55)
[2021-07-08] MEDS ORDERED: MORPHINE SULFATE INJ 2 MG/ML DISP.SYRIN IV ONE (18:00)
[2021-07-08 18:09] LABS: CALCIUM, SERUM 8.1 mg/dL (8.5-10.1); CARBON DIOXIDE 19 mmol/L (21-32); CHLORIDE 96 mmol/L (98-107); GLUCOSE 122 mg/dL (74-106); POTASSIUM 4.4 mmol/L (3.5-5.1); SODIUM SERUM 129 mmol/L (136-145); UREA NITROGEN, BLOOD 13 mg/dL (7-18)
[2021-07-08] MEDS ORDERED: DEXAMETHASONE SOD PHOSPHATE 10 MG/ML VIAL ONE (18:48)
[2021-07-08] MEDS ORDERED: CEFTRIAXONE 1GM BAG (ER ONLY) 50 ML IV ONE ×2 (18:48→19:00)
[2021-07-08] MEDS ORDERED: DEXAMETHASONE SOD PHOSPHATE 10 MG/ML VIAL IV ONE (19:00)
[2021-07-08] MEDS ORDERED: DOXYCYCLINE 100 MG in IV D5W 250 ML IV ONE (19:00)
[2021-07-08] MEDS ORDERED: KETOROLAC TROMETHAMINE INJ 30 MG/ML VIAL ONE (19:05)
[2021-07-08] MEDS ORDERED: KETOROLAC TROMETHAMINE INJ 30 MG/ML VIAL IV ONE ×2 (19:30→23:00)
[2021-07-08] MEDS ORDERED: DOXYCYCLINE 100 MG VIAL ONE (19:50)
[2021-07-08 19:53] LABS: ALBUMIN 3.9 g/dL (3.4-5.0); BILIRUBIN,DIRECT 0.1 mg/dL (0.0-0.2); BILIRUBIN,TOTAL 0.3 mg/dL (0.2-1.0); TOTAL PROTEIN, SERUM 6.9 g/dL (6.4-8.2)
[2021-07-08 20:09] LABS: BAND % (MANUAL) 9 % (0.0-5.0); LYMPHOCYTES % (MANUAL) 2 % (16-48); MONOCYTES % (MANUAL) 4 % (0-11.0); NEUTROPHILS % (MANUAL) 85 (42-76)
[2021-07-08] MEDS ORDERED: predniSONE 20 MG TABLET PO ONE (20:30)
[2021-07-08] MEDS ORDERED: ALBUTEROL FS 2.5 MG/3 ML VIAL.NEB NEB ONE (20:30)
[2021-07-08] MEDS ORDERED: IPRATROPIUM NEB FS 0.5 MG/2.5 ML AMPUL.NEB NEB ONE (20:30)
[2021-07-08] MEDS ORDERED: IV NS 0.9% 1,000 ML IV ONE (20:30)
[2021-07-08] MEDS ORDERED: predniSONE 20 MG TABLET ONE (22:06)
[2021-07-08] MEDS ORDERED: ALBUTEROL FS 2.5 MG/3 ML VIAL.NEB ONE (22:15)
[2021-07-08] MEDS ORDERED: IPRATROPIUM NEB FS 0.5 MG/2.5 ML AMPUL.NEB ONE (22:15)
[2021-07-08] MEDS ORDERED: PROCHLORPERAZINE EDISYLATE 10 MG/2 ML VIAL IVP ONE (23:00)
[2021-07-08] MEDS ORDERED: diphenhydrAMINE HCL 50 MG/ML VIAL IV ONE (23:00)
[2021-07-08] MEDS ORDERED: diphenhydrAMINE HCL 50 MG/ML VIAL ONE (23:05)
[2021-07-08] MEDS ORDERED: KETOROLAC TROMETHAMINE 15 MG/ML VIAL ONE (23:05)
[2021-07-08] MEDS ORDERED: PROCHLORPERAZINE EDISYLATE 10 MG/2 ML VIAL ONE (23:06)
[2021-07-09] MEDS ORDERED: KETOROLAC TROMETHAMINE INJ 30 MG/ML VIAL ONE (02:43)
[2021-07-09] MEDS ORDERED: KETOROLAC TROMETHAMINE INJ 30 MG/ML VIAL IV ONE (03:00)
[2021-07-09 08:03] VITALS: BP 140/72
== END 2021-07-09 08:06 | disposition short-term general hospital (02) ==
LOC: ER 17:20
DX: A41.9 Sepsis, unspecified organism (principal); J18.9 Pneumonia, unspecified organism; R65.20 Severe sepsis without septic shock; J96.01 Acute respiratory failure with hypoxia; Z20.822 Contact with and (suspected) exposure to COVID-19; I10 Essential (primary) hypertension; Z88.0 Allergy status to penicillin; Z79.82 Long term (current) use of aspirin; Z79.899 Other long term (current) drug therapy; F41.9 Anxiety disorder, unspecified; I48.91 Unspecified atrial fibrillation
CPT/HCPCS: 36415; 71045-TC; 80048-TC; 80076-TC; 83605-TC; 83880; 84484-TC; 85025-TC; 87040-TC; 87081-TC; C9803; J0696; J0780; J1100; J1200; J1885; J2270; J3490; J7060; Q9967; U0003

== ENCOUNTER 2023-03-17 08:41 | Emergency (ER) | payer OTHER ==
[~2023-03-17] VITALS: Ht 167.6 cm; Wt 81.6 kg
[~2023-03-17 08:41] MED LIST changes: -PRIM250T8 GT; +PRIM250T8 PO
[2023-03-17] MEDS ORDERED: MECLIZINE HCL 25 MG TABLET ONE (09:13)
[2023-03-17] MEDS ORDERED: ONDANSETRON HCL/PF 4 MG/2 ML VIAL ONE (09:13)
[2023-03-17] MEDS ORDERED: IV NS 0.9% 1,000 ML BAG IV ONE (09:30)
[2023-03-17] MEDS ORDERED: MECLIZINE HCL 25 MG TABLET PO ONE (09:30)
[2023-03-17] MEDS ORDERED: ONDANSETRON HCL/PF 4 MG/2 ML VIAL IVP ONE (09:30)
[2023-03-17 09:39] LABS: BASOPHILS % (AUTO) 0.2 % (0.0-2.0); EOSINOPHILS # (AUTO) 0.1 K/uL (0.0-0.7); EOSINOPHILS % (AUTO) 1.1 % (0.0-6.0); HEMATOCRIT 33 % (33-45); LYMPHOCYTES # (AUTO) 1.4 K/uL (0.8-4.8); LYMPHOCYTES % (AUTO) 16.6 % (20.0-44.0); MEAN CORPUSCULAR HEMOGLOBIN 31 PG (26.0-33.0); MEAN CORPUSCULAR HGB CONC 33 g/dl (31.0-36.0); MEAN CORPUSCULAR VOLUME 92 fL (82-100); MONOCYTES # (AUTO) 0.7 K/uL (0.1-1.30); MONOCYTES % (AUTO) 8.1 % (2.0-12.0); NEUTROPHILS # (AUTO) 6.5 K/uL (1.8-8.9); PLATELET COUNT (AUTO) 175 K/uL (150-450); RED BLOOD CELL COUNT(AUTO) 3.58 MIL/uL (4.0-5.2); RED CELL DISTRIBUTION WIDTH 15.1 % (11.5-15.0); WHITE BLOOD COUNT (AUTO) 8.7 K/uL (4.3-11.0)
[2023-03-17 09:47] LABS: CARBON DIOXIDE 28 mmol/L (21-32); CHLORIDE 104 mmol/L (98-107); CREATININE 0.6 mg/dL (0.6-1.3); GLUCOSE 141 mg/dL (74-106); POTASSIUM 3.6 mmol/L (3.5-5.1); SODIUM SERUM 138 mmol/L (136-145); UREA NITROGEN, BLOOD 4 mg/dL (7-18)
[2023-03-17 10:00] LABS: ALANINE AMINOTRANSFERASE 34 U/L (12-78); ALBUMIN 3.5 g/dL (3.4-5.0); ALKALINE PHOSPHATASE 113 U/L (46-116); ASPARTATE AMINOTRANSFERASE 34 U/L (15-37); BILIRUBIN,DIRECT 0.1 mg/dL (0.0-0.2); BILIRUBIN,TOTAL 0.3 mg/dL (0.2-1.0); NT-PRO BNP 385 pg/mL (0-125); TOTAL PROTEIN, SERUM 7.1 g/dL (6.4-8.2)
[2023-03-17] MEDS ORDERED: LORAZEPAM INJ 2 MG/ML VIAL IV ONE (10:30)
[2023-03-17] MEDS ORDERED: KETOROLAC TROMETHAMINE INJ 30 MG/ML VIAL IV ONE (10:30)
[2023-03-17] MEDS ORDERED: KETOROLAC TROMETHAMINE INJ 30 MG/ML VIAL ONE (11:06)
[2023-03-17] MEDS ORDERED: LORAZEPAM INJ 2 MG/ML VIAL ONE (11:07)
[2023-03-17] MEDS ORDERED: ASPIRIN EC 325 MG TABLET.DR PO ONE (11:56)
[2023-03-17] MEDS ORDERED: ASPIRIN 325 MG TABLET PO ONE (12:00)
[2023-03-17] MEDS ORDERED: FLUT16SP (12:36)
[2023-03-17] MEDS ORDERED: IPRA3AMP23 NEB (12:36)
[2023-03-17] MEDS ORDERED: ARIP2TAB19 PO (12:36)
[2023-03-17] MEDS ORDERED: AZIT250T13 PO (12:36)
[2023-03-17] MEDS ORDERED: LEVO75TA7 PO (12:36)
[2023-03-17] MEDS ORDERED: FURO40TA5 PO (12:36)
[2023-03-17] MEDS ORDERED: LOSA25TA27 PO (12:36)
[2023-03-17] MEDS ORDERED: ALBU90AE INH (12:36)
[2023-03-17] MEDS ORDERED: ASPI-1420 PO (12:36)
[2023-03-17] MEDS ORDERED: SERT100T12 PO (12:36)
[2023-03-17] MEDS ORDERED: METO25TA20 PO (12:36)
[2023-03-17] MEDS ORDERED: GABA600T12 PO ×2 (12:36)
[2023-03-17] MEDS ORDERED: HYDR50TA61 PO (12:58)
[2023-03-17 17:34] VITALS: BP 166/82; TEMP 98; O2SAT 96
== END 2023-03-17 17:35 | disposition short-term general hospital (02) ==
LOC: ER 08:44
DX: R42 Dizziness and giddiness (principal); R11.2 Nausea with vomiting, unspecified; I11.0 Hypertensive heart disease with heart failure; I50.9 Heart failure, unspecified; J44.9 Chronic obstructive pulmonary disease, unspecified; F41.9 Anxiety disorder, unspecified; F32.A Depression, unspecified; Z88.0 Allergy status to penicillin; Z60.2 Problems related to living alone; Z79.899 Other long term (current) drug therapy
CPT/HCPCS: 99291; 96374; 70450; 96375; 96361; 93005; 71045; 85025; 80048; 83690; 80076; 36415; 84484; 83880; J8597; J2060; J1885; J2405; J7030

== ENCOUNTER 2023-06-04 22:42 | Emergency (ER) | payer OTHER ==
[~2023-06-04] VITALS: Ht 167.6 cm; Wt 81.6 kg
[~2023-06-04 22:42] MED LIST changes: +ALBU90AE INH; +ARIP2TAB19 PO; +ASPI-1420 PO; -ASPI-605 PO; +AZIT250T13 PO; -ERGO500014 PO; +FLUT16SP; +FURO40TA5 PO; -GABA-534 PO; +GABA600T12 PO; -HYDR-4354 PO; +HYDR50TA61 PO; +IPRA3AMP23 NEB; +LEVO75TA7 PO; +LOSA25TA27 PO; +METO25TA20 PO; +SERT100T12 PO; -ZOLP10TA6 PO
[2023-06-04 22:58] VITALS: O2SAT 97
[2023-06-04] MEDS: ALBUTEROL FS 2.5 MG/3 ML VIAL.NEB NEB PRN ×2 (22:58→23:07)
[2023-06-04] MEDS ORDERED: ALBUTEROL FS 2.5 MG/3 ML VIAL.NEB ONE ×2 (22:59→23:57)
[2023-06-04] MEDS: IPRATROPIUM NEB FS 0.5 MG/2.5 ML AMPUL.NEB NEB PRN ×2 (22:59→23:07)
[2023-06-04] MEDS ORDERED: IPRATROPIUM NEB FS 0.5 MG/2.5 ML AMPUL.NEB ONE (22:59)
[2023-06-04 23:08] VITALS: O2SAT 100
[2023-06-04 23:18] VITALS: O2SAT 95
[2023-06-04] MEDS ORDERED: predniSONE 20 MG TABLET ONE (23:19)
[2023-06-04 23:28] VITALS: O2SAT 100
[2023-06-04 23:29] LABS: BASOPHILS % (AUTO) 0.5 % (0.0-2.0); EOSINOPHILS # (AUTO) 0.1 K/uL (0.0-0.7); EOSINOPHILS % (AUTO) 1.1 % (0.0-6.0); HEMATOCRIT 40 % (33-45); HEMOGLOBIN 13.1 g/dL (11.5-14.8); LYMPHOCYTES # (AUTO) 2.3 K/uL (0.8-4.8); MEAN CORPUSCULAR HEMOGLOBIN 30 PG (26.0-33.0); MEAN CORPUSCULAR HGB CONC 33 g/dl (31.0-36.0); MEAN CORPUSCULAR VOLUME 92 fL (82-100); MONOCYTES # (AUTO) 0.6 K/uL (0.1-1.30); MONOCYTES % (AUTO) 10.6 % (2.0-12.0); NEUTROPHILS # (AUTO) 2.4 K/uL (1.8-8.9); NEUTROPHILS % (AUTO) 44.8 % (43.0-81.0); PLATELET COUNT (AUTO) 287 K/uL (150-450); RED BLOOD CELL COUNT(AUTO) 4.36 MIL/uL (4.0-5.2); RED CELL DISTRIBUTION WIDTH 14.8 % (11.5-15.0); WHITE BLOOD COUNT (AUTO) 5.4 K/uL (4.3-11.0)
[2023-06-04] MEDS ORDERED: predniSONE 50 MG TABLET PO ONE (23:30)
[2023-06-04] MEDS ORDERED: MORPHINE SULFATE INJ 4 MG/ML DISP.SYRIN ONE (23:33)
[2023-06-04 23:38] VITALS: O2SAT 93
[2023-06-04 23:38] LABS: CALCIUM, SERUM 9.1 mg/dL (8.5-10.1); CARBON DIOXIDE 27 mmol/L (21-32); CHLORIDE 96 mmol/L (98-107); CREATININE 0.8 mg/dL (0.6-1.3); GLUCOSE 118 mg/dL (74-106); POTASSIUM 3.1 mmol/L (3.5-5.1); SODIUM SERUM 131 mmol/L (136-145); UREA NITROGEN, BLOOD 4 mg/dL (7-18)
[2023-06-04 23:48] VITALS: O2SAT 100
[2023-06-04 23:53] LABS: NT-PRO BNP 60 pg/mL (0-125)
[2023-06-05] VITALS: O2SAT 94
[2023-06-05] MEDS: IPRATROPIUM NEB FS 0.5 MG/2.5 ML AMPUL.NEB NEB PRN
[2023-06-05] MEDS ORDERED: MORPHINE SULFATE INJ 2 MG/ML DISP.SYRIN IV ONE
[2023-06-05 00:10] VITALS: O2SAT 100
[2023-06-05 00:20] VITALS: O2SAT 96
[2023-06-05] MEDS: ALBUTEROL FS 2.5 MG/3 ML VIAL.NEB NEB PRN ×2 (00:20)
[2023-06-05] MEDS ORDERED: Magnesium 1GM/D5W 100ML PREMIX 100 ML IV ONE (00:28)
[2023-06-05 00:30] VITALS: O2SAT 100
[2023-06-05] MEDS ORDERED: Magnesium 1GM/D5W 100ML PREMIX 100 ML IV SCH (00:30)
[2023-06-05] MEDS ORDERED: methylPREDNISolone SOD SUCC 40 MG/ML VIAL IV ONE (00:30)
[2023-06-05 00:53] LABS: ABG BASE EXCESS -4.5 mmol/L; ABG OXYGEN SATURATION 94.7 % (92.0-98.5); ABG PCO2 39.7 mmHg (35.0-45.0); ABG PH 7.339 (7.350-7.450); ABG PO2 76.9 mmHg (75.0-100.0); COHb 0.3 % (0.5-1.5); MetHb 0.2 % (0.0-1.5); O2Hb 94.2 % (94.0-97.0); SITE, ABG Left Radial; VENT MODE, BG 2L NC
[2023-06-05] MEDS ORDERED: predniSONE 50 MG TABLET PO ONE (01:00)
[2023-06-05] MEDS ORDERED: predniSONE 20 MG TABLET ONE (01:01)
[2023-06-05] MEDS ORDERED: POTASSIUM CHLORIDE 20 MEQ TAB.PRT.SR PO ONE ×2 (01:30→01:31)
[2023-06-05] MEDS ORDERED: ACETAMINOPHEN 325 MG TABLET PO ONE (02:30)
[2023-06-05] MEDS ORDERED: PRED50TA PO (02:42)
[2023-06-05 02:58] VITALS: BP 150/110; O2SAT 100
== END 2023-06-05 02:59 | disposition left against medical advice (07) ==
LOC: ER 22:43
DX: J45.901 Unspecified asthma with (acute) exacerbation (principal); J82.83 Eosinophilic asthma; J96.90 Respiratory failure, unspecified, unspecified whether with hypoxia or hypercapnia; I11.0 Hypertensive heart disease with heart failure; I50.9 Heart failure, unspecified; J44.9 Chronic obstructive pulmonary disease, unspecified; F41.9 Anxiety disorder, unspecified; F32.A Depression, unspecified; F17.200 Nicotine dependence, unspecified, uncomplicated; Z88.0 Allergy status to penicillin; Z60.2 Problems related to living alone; Z79.899 Other long term (current) drug therapy; Z20.822 Contact with and (suspected) exposure to COVID-19
CPT/HCPCS: 99291; 72128; 71045; 96375; 87426; 93005; 87804 ×2; 85025; 80048; 36415; 84484; 83880; 94799; 96365; 82803; 36600 ×2; 94640 ×3; J2270; J7512 ×2; C9803; J3475

== ENCOUNTER 2023-12-11 09:10 | Emergency (ER) | payer OTHER ==
[~2023-12-11] VITALS: Ht 160 cm; Wt 80.7 kg
[~2023-12-11 09:10] MED LIST changes: +PRED50TA PO
[2023-12-11] MEDS ORDERED: methylPREDNISolone SOD SUCC 125 MG/2ML VIAL ONE (10:04)
[2023-12-11] MEDS ORDERED: LIDOCAINE 1%-EPI 1:100,000 20 ML VIAL ONE (10:13)
[2023-12-11] MEDS: methylPREDNISolone SOD SUCC 125 MG/2ML VIAL IV ONE (10:15)
[2023-12-11] MEDS ORDERED: ALBUTEROL FS 2.5 MG/3 ML VIAL.NEB ONE (10:16)
[2023-12-11] MEDS ORDERED: IPRATROPIUM NEB FS 0.5 MG/2.5 ML AMPUL.NEB ONE (10:16)
[2023-12-11 10:23] VITALS: O2SAT 92
[2023-12-11] MEDS: IPRATROPIUM NEB FS 0.5 MG/2.5 ML AMPUL.NEB NEB ONE (10:23)
[2023-12-11] MEDS: ALBUTEROL FS 2.5 MG/3 ML VIAL.NEB NEB ONE (10:23)
[2023-12-11 10:35] LABS: BASOPHILS # (AUTO) 0.1 K/uL (0.0-0.2); EOSINOPHILS # (AUTO) 0.1 K/uL (0.0-0.7); EOSINOPHILS % (AUTO) 1.7 % (0.0-6.0); HEMATOCRIT 36 % (33-45); HEMOGLOBIN 11.8 g/dL (11.5-14.8); LYMPHOCYTES # (AUTO) 1.5 K/uL (0.8-4.8); LYMPHOCYTES % (AUTO) 27.8 % (20.0-44.0); MEAN CORPUSCULAR HEMOGLOBIN 30 PG (26.0-33.0); MEAN CORPUSCULAR HGB CONC 33 g/dl (31.0-36.0); MEAN CORPUSCULAR VOLUME 93 fL (82-100); MONOCYTES # (AUTO) 0.7 K/uL (0.1-1.30); NEUTROPHILS # (AUTO) 3.1 K/uL (1.8-8.9); NEUTROPHILS % (AUTO) 56.5 % (43.0-81.0); PLATELET COUNT (AUTO) 187 K/uL (150-450); RED BLOOD CELL COUNT(AUTO) 3.89 MIL/uL (4.0-5.2); RED CELL DISTRIBUTION WIDTH 15.2 % (11.5-15.0); WHITE BLOOD COUNT (AUTO) 5.5 K/uL (4.3-11.0)
[2023-12-11 10:36] VITALS: O2SAT 98
[2023-12-11 10:43] LABS: CALCIUM, SERUM 8.8 mg/dL (8.5-10.1); CARBON DIOXIDE 34 mmol/L (21-32); CHLORIDE 102 mmol/L (98-107); CREATININE 0.8 mg/dL (0.6-1.3); GLUCOSE 109 mg/dL (74-106); POTASSIUM 3.9 mmol/L (3.5-5.1); SODIUM SERUM 137 mmol/L (136-145); UREA NITROGEN, BLOOD 14 mg/dL (7-18)
[2023-12-11] MEDS: LIDOCAINE 0.5%-EPI 1:200,000 50 ML VIAL IJ ONE (10:49)
[2023-12-11] MEDS ORDERED: CEPH250C PO (12:54)
[2023-12-11] MEDS ORDERED: PRED50TA PO (12:54)
[2023-12-11 13:15] VITALS: BP 112/73; TEMP 98.2; O2SAT 98
== END 2023-12-11 13:16 | disposition home or self-care (01) ==
LOC: ER 09:12
DX: S81.011A Laceration without foreign body, right knee, initial encounter (principal); J45.901 Unspecified asthma with (acute) exacerbation; R51.9 Headache, unspecified; M54.2 Cervicalgia; I11.0 Hypertensive heart disease with heart failure; I50.9 Heart failure, unspecified; J44.9 Chronic obstructive pulmonary disease, unspecified; F41.9 Anxiety disorder, unspecified; F32.A Depression, unspecified; Z88.0 Allergy status to penicillin; Z60.2 Problems related to living alone; Z79.899 Other long term (current) drug therapy; W06.XXXA Fall from bed, initial encounter; Y93.89 Activity, other specified; Y92.89 Other specified places as the place of occurrence of the external cause; Y99.8 Other external cause status
CPT/HCPCS: 12004; 70450; 71045; 72125; 73564; 80048; 84484; 85025; 93005; 94640; 94799; 96374; 99285; A6403; J2919; J3490

== ENCOUNTER 2024-12-05 20:50 | Emergency (ER) | payer MEDICARE, OTHER ==
[~2024-12-05] VITALS: Ht 167.6 cm; Wt 77.1 kg
[~2024-12-05 20:50] MED LIST changes: +CEPH250C PO
[2024-12-05 22:08] LABS: BASOPHILS % (AUTO) 0.8 % (0.0-2.0); EOSINOPHILS # (AUTO) 0.1 K/uL (0.0-0.7); HEMATOCRIT 41 % (33-45); HEMOGLOBIN 13.8 g/dL (11.5-14.8); LYMPHOCYTES # (AUTO) 2.8 K/uL (0.8-4.8); LYMPHOCYTES % (AUTO) 45.3 % (20.0-44.0); MEAN CORPUSCULAR HEMOGLOBIN 33 PG (26.0-33.0); MEAN CORPUSCULAR HGB CONC 34 g/dl (31.0-36.0); MEAN CORPUSCULAR VOLUME 97 fL (82-100); MONOCYTES # (AUTO) 0.5 K/uL (0.1-1.30); MONOCYTES % (AUTO) 8.3 % (2.0-12.0); NEUTROPHILS # (AUTO) 2.7 K/uL (1.8-8.9); NEUTROPHILS % (AUTO) 44.6 % (43.0-81.0); PLATELET COUNT (AUTO) 163 K/uL (150-450); RED BLOOD CELL COUNT(AUTO) 4.21 MIL/uL (4.0-5.2); RED CELL DISTRIBUTION WIDTH 14.8 % (11.5-15.0); WHITE BLOOD COUNT (AUTO) 6.2 K/uL (4.3-11.0)
[2024-12-05 22:13] LABS: CALCIUM, SERUM 8.6 mg/dL (8.5-10.1); CARBON DIOXIDE 25 mmol/L (21-32); CHLORIDE 103 mmol/L (98-107); CREATININE 0.7 mg/dL (0.6-1.3); GLUCOSE 116 mg/dL (74-106); POTASSIUM 3.5 mmol/L (3.5-5.1); SODIUM SERUM 138 mmol/L (136-145); UREA NITROGEN, BLOOD 15 mg/dL (7-18)
[2024-12-05 22:20] LABS: ACETAMINOPHEN < 10 ug/ml (10-30); ALANINE AMINOTRANSFERASE 14 U/L (12-78); ALBUMIN 3.6 g/dL (3.4-5.0); ALKALINE PHOSPHATASE 90 U/L (46-116); ASPARTATE AMINOTRANSFERASE 15 U/L (15-37); BILIRUBIN,DIRECT 0.1 mg/dL (0.0-0.2); BILIRUBIN,TOTAL 0.3 mg/dL (0.2-1.0); TOTAL PROTEIN, SERUM 6.9 g/dL (6.4-8.2)
[2024-12-05 22:21] LABS: SALICYLATE 1.8 mg/dL (2.8-20.0)
[2024-12-05 22:25] LABS: ALCOHOL, BLOOD 420 mg/dL (0-10)
[2024-12-06 01:34] LABS: APPEARANCE,URINE CLEAR (CLEAR); BILIRUBIN,URINE NEGATIVE (NEGATIVE); BLOOD, URINE TRACE-INTA Ery/uL (NEGATIVE); COLOR,URINE YELLOW (YELLOW); KETONES,URINE NEGATIVE (NEGATIVE); LEUKOCYTE ESTERASE ,URINE NEGATIVE (NEGATIVE); NITRITE, URINE NEGATIVE (NEGATIVE); PH,URINE 6.5 (5.0-8.0); PROTEIN,URINE NEGATIVE (NEGATIVE); UGLUCOSE NEGATIVE (NEGATIVE); UROBILINOGEN,URINE 0.2 EU/dL (0.2)
[2024-12-06 01:45] LABS: ADD URINE CULTURE NO; BACTERIA,URINE None seen /HPF (None Seen); RBC,URINE 0-2 /HPF (0-2); SQUAMOUS EPITHELIAL CELL,UR Rare /HPF (None Seen); WBC,URINE NONE SEEN /HPF (0-3)
[2024-12-06 01:51] LABS: AMPHETAMINE, URINE NEGATIVE (NEGATIVE); BARBITURATE, URINE POSITIVE (NEGATIVE); BENZODIAZEPINE, URINE NEGATIVE (NEGATIVE); CANNABINOID, URINE NEGATIVE (NEGATIVE); COCCAINE, URINE NEGATIVE (NEGATIVE); OPIATE, URINE POSITIVE (NEGATIVE); PHENCYCLIDINE SCREEN,URINE NEGATIVE (NEGATIVE)
[2024-12-06] MEDS ORDERED: ACETAMINOPHEN 325 MG TABLET ONE (06:01)
[2024-12-06] MEDS: ACETAMINOPHEN 325 MG TABLET PO ONE (06:08)
[2024-12-06] MEDS: IV NS 0.9% 1,000 ML BAG IV ONE (06:51)
[2024-12-06 11:00] VITALS: BP 110/64; TEMP 98.5; O2SAT 98
== END 2024-12-06 11:01 | disposition home or self-care (01) ==
LOC: ER 21:00
DX: F10.129 Alcohol abuse with intoxication, unspecified (principal); S09.8XXA Other specified injuries of head, initial encounter; M54.50 Low back pain, unspecified; F17.200 Nicotine dependence, unspecified, uncomplicated; F32.A Depression, unspecified; F41.9 Anxiety disorder, unspecified; I11.0 Hypertensive heart disease with heart failure; I50.9 Heart failure, unspecified; J44.9 Chronic obstructive pulmonary disease, unspecified; Z79.52 Long term (current) use of systemic steroids; Z79.82 Long term (current) use of aspirin; Z60.2 Problems related to living alone; Z79.899 Other long term (current) drug therapy; Z20.822 Contact with and (suspected) exposure to COVID-19; Z88.0 Allergy status to penicillin; W19.XXXA Unspecified fall, initial encounter; Y93.89 Activity, other specified; Y92.89 Other specified places as the place of occurrence of the external cause; Y99.8 Other external cause status
CPT/HCPCS: 99285; 71045; 72170; 72125 ×2; 70450 ×2; 85025; 80048; 80076; 36415; 87426; 80143; 80320; 80307; 96360; 96361 ×2; 72131; 70486; 81001; J7030; G0480

== ENCOUNTER 2025-01-02 06:11 | Inpatient (IN) | payer MEDICARE, OTHER ==
[~2025-01-02] VITALS: Ht 152.4 cm; Wt 66.7 kg
[2025-01-02 07:01] LABS: BASOPHILS % (AUTO) 0.2 % (0.0-2.0); EOSINOPHILS % (AUTO) 0.1 % (0.0-6.0); HEMATOCRIT 44 % (33-45); LYMPHOCYTES # (AUTO) 1.5 K/uL (0.8-4.8); LYMPHOCYTES % (AUTO) 15.5 % (20.0-44.0); MEAN CORPUSCULAR HEMOGLOBIN 32 PG (26.0-33.0); MEAN CORPUSCULAR HGB CONC 34 g/dl (31.0-36.0); MEAN CORPUSCULAR VOLUME 95 fL (82-100); MONOCYTES # (AUTO) 0.8 K/uL (0.1-1.30); MONOCYTES % (AUTO) 7.8 % (2.0-12.0); NEUTROPHILS # (AUTO) 7.4 K/uL (1.8-8.9); NEUTROPHILS % (AUTO) 76.4 % (43.0-81.0); PLATELET COUNT (AUTO) 229 K/uL (150-450); RED BLOOD CELL COUNT(AUTO) 4.66 MIL/uL (4.0-5.2); RED CELL DISTRIBUTION WIDTH 14.5 % (11.5-15.0); WHITE BLOOD COUNT (AUTO) 9.7 K/uL (4.3-11.0)
[2025-01-02 07:18] LABS: CALCIUM, SERUM 9.1 mg/dL (8.5-10.1); CARBON DIOXIDE 30 mmol/L (21-32); CHLORIDE 103 mmol/L (98-107); GLUCOSE 98 mg/dL (74-106); POTASSIUM 4.1 mmol/L (3.5-5.1); SERUM AMMONIA 98 umol/L (11-32); SODIUM SERUM 145 mmol/L (136-145); UREA NITROGEN, BLOOD 14 mg/dL (7-18)
[2025-01-02 07:21] LABS: AMPHETAMINE, URINE NEGATIVE (NEGATIVE); CANNABINOID, URINE NEGATIVE (NEGATIVE); COCCAINE, URINE NEGATIVE (NEGATIVE); OPIATE, URINE NEGATIVE (NEGATIVE); PHENCYCLIDINE SCREEN,URINE NEGATIVE (NEGATIVE)
[2025-01-02 07:25] LABS: BARBITURATE, URINE POSITIVE (NEGATIVE); BENZODIAZEPINE, URINE POSITIVE (NEGATIVE)
[2025-01-02 07:28] LABS: ALANINE AMINOTRANSFERASE 13 U/L (12-78); ALKALINE PHOSPHATASE 86 U/L (46-116); ASPARTATE AMINOTRANSFERASE 26 U/L (15-37); BILIRUBIN,TOTAL 0.4 mg/dL (0.2-1.0); TOTAL PROTEIN, SERUM 7.8 g/dL (6.4-8.2)
[2025-01-02 07:34] LABS: ACETAMINOPHEN <10 ug/ml (10-30); ALCOHOL, BLOOD < 3 mg/dL (0-10); SALICYLATE 2.1 mg/dL (2.8-20.0)
[2025-01-02] MEDS: LEVOFLOXACIN 750 MG /D5W 150ML PIGGYBACK IV ONE (08:30)
[2025-01-02] MEDS: IV NS 0.9% 1,000 ML BAG IV ONE (08:30)
[2025-01-02 08:38] LABS: LACTIC ACID 5.9 mmol/L (0.4-2.0)
[2025-01-02] MEDS ORDERED: LEVOFLOXACIN 750 MG /D5W 150ML 150 ML IV ONE (08:48)
[2025-01-02 09:44] LABS: BILIRUBIN,DIRECT 0.2 mg/dL (0.0-0.2)
[2025-01-02] MEDS ORDERED: MAG HYDROX/AL HYDROX/SIMETH 30 ML UDC PO PRN (10:00)
[2025-01-02] MEDS ORDERED: MAGNESIUM HYDROXIDE 30 ML UDC PO PRN (10:00)
[2025-01-02] MEDS ORDERED: LEVOFLOXACIN 500 MG /D5W 100ML 500 MG in PREMIX 1 EA IV SCH (10:00)
[2025-01-02] MEDS ORDERED: Z GUARD REMEDY 4 OZ OINT TP PRN (10:00)
[2025-01-02] MEDS: THIAMINE HCL 100 MG TABLET PO SCH (10:30)
[2025-01-02] MEDS ORDERED: ALPRAZOLAM 0.5 MG TABLET PO PRN (10:30)
[2025-01-02] MEDS: LACTULOSE 10 G/15 ML UDC (PYXIS) PO SCH (11:30)
[2025-01-02 11:58] VITALS: BP 132/68; TEMP 98.4; O2SAT 95
[2025-01-02] MEDS: IV NS 0.9% 1,000 ML IV PRN (12:27)
[2025-01-02] MEDS: LEVOFLOXACIN 500 MG /D5W 100ML 500 MG in PREMIX 1 EA IV ONE (12:27)
[2025-01-02 16:00] VITALS: BP 160/84; TEMP 98.2; O2SAT 98
[2025-01-02 20:00] VITALS: BP 144/66; TEMP 97.9; O2SAT 96
[2025-01-02] MEDS: ACETAMINOPHEN 325 MG TABLET PO PRN (20:18)
[2025-01-02] MEDS: ONDANSETRON HCL/PF 4 MG/2 ML VIAL IVP PRN (20:46)
[2025-01-02] MEDS: ZOLPIDEM TARTRATE 5 MG TABLET PO PRN (23:16)
[2025-01-03] VITALS: BP 129/76; TEMP 98.1; O2SAT 96
[2025-01-03 04:00] VITALS: BP 125/65; TEMP 98.1; O2SAT 95
[2025-01-03 05:24] LABS: APPEARANCE,URINE CLOUDY (CLEAR); BILIRUBIN,URINE NEGATIVE (NEGATIVE); BLOOD, URINE 1+ Ery/uL (NEGATIVE); COLOR,URINE YELLOW (YELLOW); KETONES,URINE 1+ mg/dL (NEGATIVE); LEUKOCYTE ESTERASE ,URINE TRACE (NEGATIVE); NITRITE, URINE NEGATIVE (NEGATIVE); PH,URINE 7.5 (5.0-8.0); PROTEIN,URINE TRACE mg/dl (NEGATIVE); UGLUCOSE NEGATIVE (NEGATIVE); UROBILINOGEN,URINE 0.2 EU/dL (0.2)
[2025-01-03 05:45] LABS: ADD URINE CULTURE YES; BACTERIA,URINE Few /HPF (None Seen); RBC,URINE 0-2 /HPF (0-2); SQUAMOUS EPITHELIAL CELL,UR Few /HPF (None Seen); WBC,URINE 51-80 /HPF (0-3)
[2025-01-03 07:40] LABS: BASOPHILS % (AUTO) 0.6 % (0.0-2.0); EOSINOPHILS % (AUTO) 0.5 % (0.0-6.0); HEMATOCRIT 42 % (33-45); HEMOGLOBIN 14.1 g/dL (11.5-14.8); LYMPHOCYTES # (AUTO) 1.8 K/uL (0.8-4.8); LYMPHOCYTES % (AUTO) 35.4 % (20.0-44.0); MEAN CORPUSCULAR HEMOGLOBIN 32 PG (26.0-33.0); MEAN CORPUSCULAR HGB CONC 33 g/dl (31.0-36.0); MEAN CORPUSCULAR VOLUME 96 fL (82-100); MONOCYTES # (AUTO) 0.6 K/uL (0.1-1.30); MONOCYTES % (AUTO) 11.2 % (2.0-12.0); NEUTROPHILS # (AUTO) 2.7 K/uL (1.8-8.9); NEUTROPHILS % (AUTO) 52.3 % (43.0-81.0); PLATELET COUNT (AUTO) 199 K/uL (150-450); RED BLOOD CELL COUNT(AUTO) 4.42 MIL/uL (4.0-5.2); WHITE BLOOD COUNT (AUTO) 5.1 K/uL (4.3-11.0)
[2025-01-03] MEDS: PANTOPRAZOLE 40 MG TABLET.DR PO SCH (07:51)
[2025-01-03 08:00] VITALS: BP 124/63; TEMP 97.7; O2SAT 96
[2025-01-03 09:17] LABS: CALCIUM, SERUM 8.9 mg/dL (8.5-10.1); CREATININE 0.7 mg/dL (0.6-1.3); MAGNESIUM 1.8 mg/dL (1.8-2.4); PHOSPHORUS 2.7 mg/dL (2.5-4.9)
[2025-01-03 09:29] LABS: POTASSIUM 3.2 mmol/L (3.5-5.1)
[2025-01-03] MEDS: LEVOFLOXACIN 250 MG /D5W 50 ML 250 MG in PREMIX 1 EA IV SCH (10:44)
[2025-01-03] MEDS ORDERED: OXYC1TAB12 PO (11:45)
[2025-01-03] MEDS ORDERED: DIVA250T47 PO (11:45)
[2025-01-03] MEDS ORDERED: TRAZ-252 PO (11:45)
[2025-01-03] MEDS ORDERED: LEVO500T90 PO (12:30)
[2025-01-03 14:31] VITALS: BP 119/76; TEMP 97.5; O2SAT 96
== END 2025-01-03 15:40 | disposition home or self-care (01) | DRG 689 ==
LOC: ER 06:17 → TELE 08:53
PROVIDERS: ADMIT Nurse Practitioner Acute Care; ATTEND Nurse Practitioner Acute Care
DX: N39.0 Urinary tract infection, site not specified (principal); G92.8 Other toxic encephalopathy; E72.20 Disorder of urea cycle metabolism, unspecified; E87.20 Acidosis, unspecified; E03.9 Hypothyroidism, unspecified; I11.0 Hypertensive heart disease with heart failure; I50.9 Heart failure, unspecified; J44.9 Chronic obstructive pulmonary disease, unspecified; F41.9 Anxiety disorder, unspecified; F32.A Depression, unspecified; F10.10 Alcohol abuse, uncomplicated; Y90.0 Blood alcohol level of less than 20 mg/100 ml; F19.10 Other psychoactive substance abuse, uncomplicated; Z88.0 Allergy status to penicillin; Z87.891 Personal history of nicotine dependence; Z79.899 Other long term (current) drug therapy; Z79.890 Hormone replacement therapy; Z79.82 Long term (current) use of aspirin; Z79.51 Long term (current) use of inhaled steroids; G40.909 Epilepsy, unspecified, not intractable, without status epilepticus; B96.89 Other specified bacterial agents as the cause of diseases classified elsewhere
CPT/HCPCS: 36415; 70450-TC; 71045-TC; 80048-TC; 80061-TC; 80076-TC; 80175; 81001; 82140-TC; 82607-TC; 82962-TC; 83605-TC; 83735-TC; 84100-TC; 84443-TC; 85025-TC; 87040-TC; 87086-TC; 87186-TC; 97112-TC; 97116-TC; 97530-TC; A4216; A4223; G0378; G0480; J1956; J2405; J7030